=== PATIENT | female | born 1940 | race Caucasian/White ===

== ENCOUNTER 2018-10-09 13:07 | Inpatient (IN) | payer MEDICARE ==
[2018-10-09] MEDS ORDERED: Zolpidem Tartrate 5 MG TAB PO PRN (15:53)
[2018-10-09] MEDS ORDERED: HYDROcodone/Acetaminophen 7.5/325 mg Tablet PO PRN (15:53)
[2018-10-09] MEDS ORDERED: Milk Of Magnesia 30 ML UDCUP PO PRN (15:53)
[2018-10-09] MEDS ORDERED: HYDROcodone/Acetaminophen 10/325 mg Tablet PO PRN (16:37)
[2018-10-09] MEDS: HYDROcodone/Acetaminophen 10/325 mg Tablet PO PRN ×2 (17:24→23:43)
[2018-10-09] MEDS: TROSPIUM 20 MG TABLET PO SCH (21:26)
[2018-10-09] MEDS: Gabapentin 100 MG CAP PO SCH (21:26)
[2018-10-09] MEDS: Oxybutynin 5 MG TAB PO SCH (21:28)
[2018-10-09] MEDS: Docusate 100 MG CAP PO SCH (21:29)
[2018-10-09] MEDS: Rosuvastatin 10 MG TAB PO SCH (21:29)
[2018-10-09] MEDS: NIFEdipine XL 30 MG TAB PO SCH (21:55)
[2018-10-10 06:22] LABS: #Basophils 0.1 thou/uL (0.0-0.2); #Eosinphils 0.3 thou/uL (0.0-0.7); #Lymphocytes 2.2 thou/uL (1.20-3.40); #Monocytes 0.7 thou/uL (0.11-0.59); #Neutrophils 4.3 thou/uL (1.40-6.50); %Basophils 1.3 % (0.0-1.0); %Eosinophils 3.6 % (0.0-10.0); %Lymphocytes 28.9 % (21.0-51.0); %Neutrophils 57.2 % (42.0-75.0); Hemoglobin 9.8 g/dL (12.0-16.0); Mean Corpuscular Hemoglobin 33.6 pg (27.0-31.0); Mean Corpuscular Volume 93.4 fL (78.0-98.0); Mean Platelet Volume 6.8 fL (7.4-10.4); Platelet Count 251 thou/uL (130-400); RBC Distribution Width 11.4 % (11.5-14.5); Red Blood Cell (RBC) Count 2.93 mill/uL (4.20-5.40); White Blood Cell (WBC) Count 7.5 thou/uL (4.8-10.8)
[2018-10-10 07:17] LABS: ALT (SGPT) 8 U/L (8-55); AST (SGOT) 16 U/L (5-34); Albumin 3.3 g/dL (3.4-4.8); Alkaline Phosphatase 90 U/L (40-150); Anion Gap 12 mmol/L (10-20); BUN (Urea Nitrogen) 16 mg/dL (9.8-20.1); Bilirubin, Total 0.6 mg/dL (0.2-1.2); Calc. Creatinine Clearance 94 mL/min (70-130); Calcium 8.6 mg/dL (7.8-10.44); Carbon Dioxide 29 mmol/L (23-31); Chloride 94 mmol/L (98-107); Estimated GFR-MDRD Greater than 90; Globulin 2.4 g/dL (2.4-3.5); Glucose 89 mg/dL (83-110); Protein, Total 5.7 g/dL (6.0-8.3); Sodium 131 mmol/L (136-145)
[2018-10-10] MEDS: HYDROcodone/Acetaminophen 10/325 mg Tablet PO PRN ×3 (07:50→20:55)
[2018-10-10] MEDS: Multivit, Therapeutic 1 TAB PO SCH (08:30)
[2018-10-10] MEDS: Docusate 100 MG CAP PO SCH ×2 (08:30→20:08)
[2018-10-10] MEDS: Hydrochlorothiazide 25 MG TAB PO SCH (08:30)
[2018-10-10] MEDS: TROSPIUM 20 MG TABLET PO SCH ×2 (08:30→20:05)
[2018-10-10] MEDS: Metoprolol Tartrate 25 MG TAB PO SCH (08:30)
[2018-10-10] MEDS: OXCARBAZEPINE 600 MG PO SCH (08:31)
[2018-10-10] MEDS: NIFEdipine XL 30 MG TAB PO SCH ×2 (08:31→20:05)
[2018-10-10 15:41] LABS: CRP (Inflammatory) 21.97 mg/dL (= or < 0.5)
[2018-10-10] MEDS: Gabapentin 100 MG CAP PO SCH (20:06)
[2018-10-10] MEDS: Rosuvastatin 10 MG TAB PO SCH (20:07)
[2018-10-10] MEDS: Oxybutynin 5 MG TAB PO SCH (20:08)
[2018-10-11] MEDS: HYDROcodone/Acetaminophen 10/325 mg Tablet PO PRN ×3 (03:11→18:12)
[2018-10-11] MEDS: TROSPIUM 20 MG TABLET PO SCH ×2 (09:17→20:38)
[2018-10-11] MEDS: Docusate 100 MG CAP PO SCH ×2 (09:17→20:41)
[2018-10-11] MEDS: Metoprolol Tartrate 25 MG TAB PO SCH (09:18)
[2018-10-11] MEDS: Multivit, Therapeutic 1 TAB PO SCH (09:18)
[2018-10-11] MEDS: NIFEdipine XL 30 MG TAB PO SCH ×2 (09:18→20:41)
[2018-10-11] MEDS: Hydrochlorothiazide 25 MG TAB PO SCH (09:18)
[2018-10-11] MEDS: OXCARBAZEPINE 600 MG PO SCH (09:19)
[2018-10-11] MEDS ORDERED: Polyethylene Glycol 3350 17 GM Packet PO SCH (10:15)
--- NOTE | 2018-10-11 14:23 | HP ---
DATE OF ADMISSION: 10/09/2018 DATE OF SERVICE: 10/10/2018 PRIMARY CARE PHYSICIAN: Dr. Ran Alfaro. ADMITTING PHYSICIAN: Dr. Erickson. CHIEF COMPLAINT: Hypotension after elective left total knee replacement and [facility], physical, and occupational therapy. HISTORY OF PRESENT ILLNESS: Ms. Mckeon is a 78-year-old female with history of hyperten siri, hyperlipidemia, facial spasms, gastroesophageal reflux disease, and degenerative joint disease that lives independently with in [place] and was admitted and on 10/06/2018 for elective t otal knee replacement under Dr. Kaiser at [facility]. Patient had hypotension after her surge ry, she was kept for 2 days and her blood pressure gradually normalized. Initial plan for patient is to go home with home health. Unfortunately, the daughter will not be available to take care of the patient over the weekend and has advancing dementia and with poor physical condition as well. She re quires minimal to moderate assist from supine to sitting position, moderate assist from sitting to st anding and from bed to chair transfer. Prior to her transfer, she is standing using rolling walker. She has decreased mobility, endurance, poor gait, decreased range of motion and strength with decre ased transfer ability. Hence, she will need continued physical and occupational therapy prior transi tioning to home which a Home Health with physical therapy. Upon evaluation, she walked about 160 fee t using rolling walker with partial weightbearing on her left lower extremity. PAST MEDICAL HISTORY: 1. Hypertension. 2. Hyperlipidemia. 3. Facial spasms. 4. Former smoker. 5. Obesity. 6. Gastroesophageal reflux disease. 7. Overactive bladder. SOCIAL HISTORY: Former smoker. Denies alcohol or drug use. She lives with in [place]. MEDICATIONS: 1. [place] 10/325 1-2 tablets every 4-6 hours p.r.n. for pain. 2. Aspirin 81 mg b.i.d. 3. Colace 100 mg b.i.d. 4. Neurontin 200 mg at bedtime. 5. HCTZ 12.5 mg daily. 6. Metoprolol 25 mg daily. 7. Procardia 30 mg b.i.d. 8. Ditropan 5 mg at bedtime. 9. Protonix 40 mg daily. 10. Oxcarbazepine 600 mg 1 tablet daily. 11. Dilantin 100 mg b.i.d. 12. Crestor 20 mg at bedtime. 13. Trospium 20 mg b.i.d. 14. Ambien 5 mg every bedtime p.r.n. for insomnia. ALLERGIES: LEVAQUIN and INDOCIN causing shortness of breath, heart palpitations and anxiety. FAMILY HISTORY: Father due to heart attack. Mother due to old age. Siblings dece ased, unknown cause. PAST SURGICAL HISTORY: Hysterectomy at age 47, hammertoe surgery x2 at the age of 71, rotator cuff s urgery at the age of 55 and a recent left total knee replacement. REVIEW OF SYSTEMS: GENERAL: No fever, no chills. Negative for weight loss or gain. No decreased appetite. HEENT: No headaches, no sore throat. CARDIOVASCULAR: No chest pain, no palpitation. RESPIRATORY: No cough, no wheezing, no shortness of breath. GASTROINTESTINAL: Positive for constipation. Negative for significant weight loss or gain. NEUROLOGIC: Negative for memory loss. Positive for weakness on left leg secondary to recent surgery . MUSCULOSKELETAL: Positive for left knee pain, swelling and tenderness due to recent surgery. Positi ve for gait instability. PSYCHIATRIC: No anxiety, no depression. PHYSICAL EXAMINATION: VITAL SIGNS: Blood pressure 127/59, O2 sat 97% on room air, respiratory rate of 18, heart rate of 88 , temperature of 98.4. GENERAL: The patient is alert, oriented, not in respiratory distress. HEENT: Normocephalic, atraumatic. Pupils are equally reactive to light. NECK: Supple. Negative for lymphadenopathy. CHEST AND LUNGS: Symmetrical expansion. Clear to auscultation bilaterally. HEART: Regular rate and rhythm. Negative for murmur. ABDOMEN: Distended, soft, normoactive bowel sounds or rebound tenderness. Negative for hepatospleno megaly. EXTREMITIES: Positive for left knee erythema, swelling and tenderness. Decreased range of motion of left lower extremity. PSYCHIATRIC: Appropriate affect and demeanor. LABORATORY DATA: Reviewed. ASSESSMENT: 1. A 78-year-old white female with a recent left knee replacement postop day #4 with hypotension imm ediately postoperatively, currently stable. 2. Gait instability. 3. Hyperlipidemia. 4. Gastroesophageal reflux disease. 5. Obesity. 6. Overactive bladder. 7. Insomnia. 8. Facial spasms. 9. Hypertension. PLAN: Patient is admitted for skilled with physical and occupational therapy and blood pressure stab ilization with titration of medication prior to transitioning to home with [facility]. Progno sis for significant improvement with reasonable time appears good. Due to her multiple comorbid cond itions, we will monitor for infection, bleeding, optimize pain management and side effects of current medication. She will participate with physical and occupational therapy to address strength, range of motion, transfer training, gait, transfers, family training, and safety transfer with progression to home exercises. We will reconcile hospital medication and adjust dosage prior to her discharge. senior clinical study manager will address how the patient can be safely discharged in a timely manner. Anticipate di scharge to home next week.
[2018-10-11] MEDS: Gabapentin 100 MG CAP PO SCH (20:38)
[2018-10-11] MEDS: Rosuvastatin 10 MG TAB PO SCH (20:40)
[2018-10-11] MEDS: Oxybutynin 5 MG TAB PO SCH (20:42)
[2018-10-12] MEDS: HYDROcodone/Acetaminophen 10/325 mg Tablet PO PRN ×3 (00:02→15:17)
[2018-10-12 06:28] VITALS: BP 131/59; TEMP 98.2
[2018-10-12 06:50] VITALS: BMI 34.3
[2018-10-12] MEDS: NIFEdipine XL 30 MG TAB PO SCH (08:55)
[2018-10-12] MEDS: Docusate 100 MG CAP PO SCH (08:55)
[2018-10-12] MEDS: TROSPIUM 20 MG TABLET PO SCH (08:56)
[2018-10-12] MEDS: Hydrochlorothiazide 25 MG TAB PO SCH (08:57)
[2018-10-12] MEDS: Multivit, Therapeutic 1 TAB PO SCH (08:58)
[2018-10-12] MEDS: Metoprolol Tartrate 25 MG TAB PO SCH (08:58)
[2018-10-12] MEDS: OXCARBAZEPINE 600 MG PO SCH (08:59)
[2018-10-12] MEDS ORDERED: Polyethylene Glycol 3350 17 GM Packet PO SCH (09:00)
--- NOTE | 2018-10-14 12:34 | DIS ---
DATE OF ADMISSION: 10/09/2018 DATE OF DISCHARGE: 10/12/2018 PRIMARY CARE PHYSICIAN: Dr. Ran Alfaro. ATTENDING PHYSICIAN: Dr. Erickson FINAL DIAGNOSES: 1. Left knee replacement, postop day #7. 2. Gait instability. 3. Gastroesophageal reflux disease. 4. Hyperlipidemia. 5. Overactive bladder. 6. Obesity. 7. Insomnia. 8. Facial spasm. 9. Hypertension. HISTORY OF PRESENT ILLNESS/COURSE IN THE [place]: Ms. Mckeon is a 78-year-old female with history of hypertension, hyperlipidemia, facial spasm, gastroesophageal reflux disease and degenerati ve joint disease who underwent left knee replacement under Dr. Kaiser at [facility] on 05/2018. The patient had hypotension after surgery. She was kept at the hospital for monitoring of blood pressure for 2 days. Upon planning of discharge the patient's daughter will not be available t o take care of her over the weekend and has advancing dementia with poor physical condition a s well. She was then admitted for initiation of physical and occupational therapy at [facility] prior to transitioning to home with [facility]. [facility] and [facility] to address her weak strength, poor range of motion, weak gait and pain . She did well during her hospital stay. She requested for discharge today 10/12/2018 under the car e of her daughter and [facility]. DISPOSITION: Discharge to home. CONDITION: Stable. ACTIVITIES: Ad shayy with orthopedic precautions. Advised patient to use rolling walker at all times. DISCHARGE MEDICATIONS: 1. Nexium 20 mg 1 tablet daily. 2. Crestor 20 mg 1 tablet at bedtime. 3. Procardia 30 mg twice a day. 4. Metoprolol 25 mg 1 tablet daily, hold if systolic BP less than 90. 5. Zofran 4 mg q.6 hours p.r.n. for nausea or vomiting. 6. Aspirin 81 mg b.i.d. 7. Multivitamins 1 tablet daily. 8. Ambien 5 mg at bedtime for insomnia. 9. Colace 100 mg twice a day for constipation. 10. HCTZ 12.5 mg 1 tablet daily. 11. Gabapentin 300 mg 1-2 capsules at bedtime as needed. 12. Ditropan 5 mg at bedtime. 13. Oxcarbazepine 600 mg 1 tablet daily. 14. [place] 7.5/325, 1-2 tablets every 6 hours p.r.n. for pain. FURTHER INSTRUCTIONS: The patient is advised to follow up with Dr. Kaiser and Dr. Ran Alfaro, joshua caicedo will call and schedule for the appointment.
== END 2018-10-12 16:23 | disposition home health service (06) | DRG 561 ==
LOC: BURMED 15:10
PROVIDERS: ADMIT Family Medicine; ATTEND Family Medicine
DX: Z47.1 Aftercare following joint replacement surgery (principal); Z96.652 Presence of left artificial knee joint; I10 Essential (primary) hypertension; E78.5 Hyperlipidemia, unspecified; G51.39 Clonic hemifacial spasm, unspecified; K21.9 Gastro-esophageal reflux disease without esophagitis; M19.90 Unspecified osteoarthritis, unspecified site; I95.81 Postprocedural hypotension; F03.90 Unspecified dementia, unspecified severity, without behavioral disturbance, psychotic disturbance, mood disturbance, and anxiety; R26.9 Unspecified abnormalities of gait and mobility; Z87.891 Personal history of nicotine dependence; E66.9 Obesity, unspecified; N32.81 Overactive bladder; G47.00 Insomnia, unspecified; Z68.34 Body mass index [BMI] 34.0-34.9, adult
CPT/HCPCS: 36415; 80053; 85025; 86140; G8978-GP-CK; G8979-GP-CI

== ENCOUNTER 2021-10-10 11:55 | Emergency (ER) | payer MEDICARE, OTHER | END 2021-10-10 12:22 | disposition home or self-care (01) | LOC: BURERS 11:55 | DX: L03.116 Cellulitis of left lower limb (principal); I10 Essential (primary) hypertension; E78.5 Hyperlipidemia, unspecified; Z79.899 Other long term (current) drug therapy | CPT/HCPCS: 99283 ==

== ENCOUNTER 2022-12-25 11:46 | Emergency (ER) | payer MEDICARE, OTHER ==
[2022-12-25] MEDS ORDERED: Boostrix 0.5 ML (Tdap) VIAL (>/=7 yrs of age) ONE (12:26)
[2022-12-25 12:30] LABS: #Basophils 0.1 thou/uL (0.0-0.2); #Lymphocytes 0.9 thou/uL (1.20-3.40); #Monocytes 0.6 thou/uL (0.11-0.59); #Neutrophils 14.2 thou/uL (1.40-6.50); %Basophils 0.5 % (0.0-1.0); %Eosinophils 0.2 % (0.0-10.0); %Lymphocytes 5.8 % (21.0-51.0); %Monocytes 3.6 % (0.0-10.0); %Neutrophils 89.9 % (42.0-75.0); Hemoglobin 12.4 g/dL (12.0-16.0); Mean Corpuscular HGB CONC 34.3 g/dL (32.0-36.0); Mean Corpuscular Hemoglobin 34.2 pg (27.0-31.0); Mean Corpuscular Volume 99.7 fl (78.0-98.0); Mean Platelet Volume 6.2 fL (7.4-10.4); Platelet Count 317 10x3/uL (130-400); RBC Distribution Width 11.9 % (11.5-14.5); Red Blood Cell (RBC) Count 3.63 mill/uL (4.20-5.40); White Blood Cell (WBC) Count 15.8 10x3/uL (4.8-10.8)
[2022-12-25 12:31] LABS: MDiff Complete? YES
[2022-12-25 12:41] LABS: ALT (SGPT) 23 U/L (8-55); AST (SGOT) 21 U/L (5-34); Albumin 4.3 g/dL (3.4-4.8); Alkaline Phosphatase 92 U/L (40-110); Anion Gap 14 mmol/L (10-20); BUN (Urea Nitrogen) 18 mg/dL (9.8-20.1); Bilirubin, Total 0.4 mg/dL (0.2-1.2); Calc. Creatinine Clearance 0 mL/min (70-130); Calcium 9.1 mg/dL (7.8-10.44); Carbon Dioxide 29 mmol/L (23-31); Chloride 91 mmol/L (98-107); Estimated GFR 77; Globulin 3.6 g/dL (2.4-3.5); Glucose 112 mg/dL (83-110); Potassium 4.1 mmol/L (3.5-5.1); Protein, Total 7.9 g/dL (5.8-8.1); Sodium 130 mmol/L (136-145)
[2022-12-25] MEDS ORDERED: Doxycycline 100 MG CAP ONE (15:37)
== END 2022-12-25 15:51 | disposition home or self-care (01) ==
LOC: BURERS 11:46
DX: S22.20XA Unspecified fracture of sternum, initial encounter for closed fracture (principal); S02.2XXA Fracture of nasal bones, initial encounter for closed fracture; S22.32XA Fracture of one rib, left side, initial encounter for closed fracture; S01.111A Laceration without foreign body of right eyelid and periocular area, initial encounter; J18.9 Pneumonia, unspecified organism; I10 Essential (primary) hypertension; E78.00 Pure hypercholesterolemia, unspecified; W18.09XA Striking against other object with subsequent fall, initial encounter; Y92.009 Unspecified place in unspecified non-institutional (private) residence as the place of occurrence of the external cause; Z23 Encounter for immunization; Z79.899 Other long term (current) drug therapy
CPT/HCPCS: 12011; 36415; 70450; 70486; 71260; 74177; 80053; 85025; 90471; 90715